=== PATIENT | female | born 1975 | race Caucasian/White ===

== ENCOUNTER 2017-01-23 11:25 | Emergency (ER) | payer BC ==
[~2017-01-23] VITALS: Ht 162.6 cm; Wt 81.5 kg
[2017-01-23 13:00] LABS: EOSINOPHIL (%) 0.8 % (0-5); EOSINOPHIL COUNT 0.1 K/uL (0-0.3); HEMATOCRIT 43.2 % (36.0-46.0); IMMATURE GRANULOCYTE (%) 0.4 % (0.0-0.7); INSTRUMENT ABS NEUTROPHIL CT 6.9 K/uL; LYMPHOCYTE COUNT 2.5 K/uL (1.0-2.8); MCH 31.6 PG (29.0-34.0); MCHC 33.3 G/DL (30.0-36.0); MCV 94.7 FL (83-99); MEAN PLAT.VOLUME 9.3 uM^3 (9.5-12.4); MONOCYTE (%) 8.6 % (3-12); MONOCYTE COUNT 0.9 K/uL (0-0.8); NEUTROPHIL (%) 65.6 % (45-76); NEUTROPHIL COUNT 6.9 K/uL (1.8-6.4); PLATELET COUNT 334 K/uL (156-360); RBC DIS.WIDTH-CV 13.1 % (11.8-14.6); RBC DIS.WIDTH-SD 45.8 % (39-53); RED BLOOD COUNT 4.56 M/uL (3.80-5.20); WHITE BLOOD COUNT 10.4 K/uL (4.1-10.2)
[2017-01-23 13:11] LABS: CHLORIDE 105 mEq/L (99-109); POTASSIUM 4.6 mEq/L (3.7-5.4); SODIUM 139 mEq/L (136-147)
[2017-01-23 13:13] LABS: GLUCOSE 99 mg/dL (70-99)
[2017-01-23 13:15] LABS: ANION GAP 11 MEQ/L (2-14)
[2017-01-23 13:17] LABS: GFR ESTIMATE (CALCULATED) > 59 mL/min/
[2017-01-23 13:18] LABS: UREA NITROGEN (BUN) 8 mg/dL (9-23)
[2017-01-23 13:33] LABS: QUANTITATIVE HCG < 4.0 MIU/ML
[2017-01-23] MEDS ORDERED: PERCOCET 5/31 TABLET PO (16:06)
[2017-01-23 16:36] VITALS: BP 124/61
== END 2017-01-23 16:37 | disposition home or self-care (01) ==
LOC: EME 11:25
PROVIDERS: Emergency Medicine
DX: K11.5 Sialolithiasis (principal); F17.200 Nicotine dependence, unspecified, uncomplicated
CPT/HCPCS: 70491; 80048; 84702; 85025; 99281; 99284; J1885; J2270